=== PATIENT | male | born 1945 | race African-American/Black ===

== ENCOUNTER 2021-08-11 11:19 | Emergency (ER) | payer MEDICARE, OTHER ==
[~2021-08-11] VITALS: Ht 175.3 cm; Wt 90.9 kg
[~2021-08-11 11:19] MED LIST: CYCL5TAB PO
[2021-08-11 11:25] VITALS: BP 194/100
[2021-08-11] MEDS ORDERED: DIPH,PERTUSS(ACELL),TET VAC/PF 0.5 ML SYRINGE. VAX IM ONE (12:00)
[2021-08-11] MEDS ORDERED: BACITRACIN TOPICAL OINT PACKET. TP ONE (12:00)
[2021-08-11] MEDS ORDERED: HYDROcodone/APAP 5/325MG 1 TAB TABLET PO ONE (12:00)
[2021-08-11] MEDS ORDERED: ONDANSETRON ODT 4 MG TAB.RAPDIS. PO ONE (12:00)
[2021-08-11] MEDS ORDERED: IBUPROFEN 200 MG TABLET. PO ONE (12:00)
[2021-08-11] MEDS ORDERED: LIDOCAINE 2% Multi-Dose 20 ML VIAL. IJ ONE (12:00)
--- NOTE | 2021-08-11 12:23 | RAD ---
Study: XR HAND_RIGHT 3 VIEWS Indication: Laceration. Comparison: None. Findings: No acute fracture. Alignment is within normal limits. No advanced arthrosis. No retained radiopaque f oreign body. Impression: No retained radiopaque foreign body, as queried. No acute fracture. Electronically signed by: NATHAN GOMEZ MD (08/11/2021 12:21 PM) [id number]
[2021-08-11] MEDS ORDERED: BACI28.34 TP (13:19)
[2021-08-11] MEDS ORDERED: CEPH500T PO (13:19)
--- NOTE | 2021-08-11 13:20 | PHYS DOC ---
Past Medical History Past Medical History: Diabetes-Type II, Kidney Stone Past Surgical History: Other Additional Past Surgical Histo: LITHOTRIPSY Smoking Status: Never Smoker Alcohol Use: None Drug Use: None General Adult EDM: Chief Complaint: LACERATION/AVULSION HPI: HPI: Patient is a 76-year-old female presents to the emergency department complaining of laceration to the palm of right hand after his chain saw kicked back on him while cutting wood just prior to arrival. Patient reports his last tetanus immunization was greater than 5 years ago, denies loss of sensation or loss of movement to his hand wrist or fingers, reports a 5 out of 10 pain, patient states he put direct pressure on it and came straight to the emergency department, patient denies other physical complaints or physical concerns. Review of Systems: Review of Systems: 14 body systems of review of systems have been reviewed. See HPI for pertinent positives and negative responses, otherwise all other systems are negative, nonpertinent or noncontributory. Constitutional: Negative except as outlined in HPI above. Skin: Negative except as outlined in HPI above. Eyes: Negative except as outlined in HPI above. HENT: Negative except as outlined in HPI above. Respiratory: Negative except as outlined in HPI above. Cardiovascular: Negative except as outlined in HPI above. GI: Negative except as outlined in HPI above. : Negative except as outlined in HPI above. Musculoskeletal: Negative except as outlined in HPI above. Integument: Negative except as outlined in HPI above. Neurologic: Negative except as outlined in HPI above. Endocrine: Negative except as outlined in HPI above. Lymphatic: Negative except as outlined in HPI above. Psychiatric: Negative except as outlined in HPI above. Heart Score: C/O Chest Pain: No Risk Factors: Risk Factors: DM, Current or recent (<one month) smoker, HTN, HLP, family history of CAD, obesity. Risk Scores: Score 0 - 3: 2.5% MACE over next 6 weeks - Discharge Home Score 4 - 6: 20.3% MACE over next 6 weeks - Admit for Clinical Observation Score 7 - 10: 72.7% MACE over next 6 weeks - Early Invasive Strategies Current Medications: Current Medications Medications (Trade) Dose Ordered Sig/Urszula Start Time Stop Time Status Last Admin Dose Admin Acetaminophen/ Hydrocodone Bitart (Lortab 5/325) 1 tab 1X ONCE 08/11/21 12:00 08/11/21 12:01 DC 08/11/21 12:11 1 TAB Bacitracin (Bacitracin Zinc Oint Pkt) 1 pkt 1X ONCE 08/11/21 12:00 08/11/21 12:02 DC 08/11/21 12:11 1 PKT Diphtheria/ Tetanus/Acell Pertussis (ADACEL TDap SYRINGE) 0.5 ml ONCE ONCE 08/11/21 12:00 08/11/21 12:01 DC 08/11/21 12:13 0.5 ML Ibuprofen (Motrin) 600 mg 1X ONCE 08/11/21 12:00 08/11/21 12:01 DC 08/11/21 12:11 600 MG Lidocaine HCl (Lidocaine 2% 20ml Vial) 20 ml 1X ONCE 08/11/21 12:00 08/11/21 12:02 DC 08/11/21 12:11 20 ML Ondansetron HCl (Zofran Odt) 4 mg 1X ONCE 08/11/21 12:00 08/11/21 12:01 DC 08/11/21 12:11 4 MG Allergies: Allergies: Allergies Coded Allergies Type Severity Reaction Last Updated Verified codeine Allergy Intermediate 05/25/16 Yes Physical Exam: PE: Constitutional: Well developed, well nourished, no acute distress, non-toxic appearance. 76-year-old male in no apparent distress. HENT: Normocephalic, atraumatic. Eyes: Conjunctiva normal, no discharge. Neck: Normal range of motion, no stridor. Cardiovascular: No cyanosis appreciated, distal cap refill less than 2 seconds. Lungs & Thorax: Patient is in no respiratory distress, no audible adventitious lung sounds appreciated. Abdomen: Nontender, no abnormalities noted. Skin: Warm, dry, no erythema, no rash. See extremity assessment for focus skin examination Back: No tenderness, no deformities. Extremities: No tenderness, no cyanosis, no clubbing, ROM intact, no edema. Except for right hand, W shaped laceration from chainsaw partial skin thickness into adipose tissue, bleeding controlled with pressure bandage, full AROM/PROM of wrist and finger joints of the hand. No tendon involvement appreciated. Distal cap refill less than 2 seconds. Total length of laceration 8 cm Neurologic: Alert and oriented X 3, normal motor function, normal sensory function, no focal deficits noted. Psychologic: Affect normal, judgement normal, mood normal. Current Patient Data: Vital Signs: Vital Signs Date Time Temp Pulse Resp B/P (MAP) Pulse Ox O2 Delivery O2 Flow Rate FiO2 08/11/21 11:25 98.3 70 18 194/100 (131) 100 Room Air 98.3 EKG: EKG: [] Radiology/Procedures: Radiology/Procedures: PATIENT: SARIKA GIPSON ACCOUNT: [id number] : 1945 LOCATION: ER AGE: 76 SEX: M EXAM STATUS: REG ER ORD. PHYSICIAN: LELE RECIO APRN REASON: Chainsaw laceration palmar aspect rule out foreign body PROCEDURE: HAND RIGHT 3V Study: XR HAND_RIGHT 3 VIEWS Indication: Laceration. Comparison: None. Findings: No acute fracture. Alignment is within normal limits. No advanced arthrosis. No retained radiopaque foreign body. Impression: No retained radiopaque foreign body, as queried. No acute fracture. Electronically signed by: NATHAN GOMEZ MD (08/11/2021 12:21 PM) [id number] Course & Med Decision Making: Course & Med Decision Making Pertinent Labs and Imaging studies reviewed. (See chart for details) 76-year-old male, vital signs reviewed, presents emergency department concerning laceration from chainsaw to right hand. Physical examination consistent with patient's explanation of events, will order x-ray to rule out foreign body, will bring tetanus immunization up-to-date, will give pain medications. See laceration repair note. Discussed with the patient all findings and diagnostic testing as well as the need to follow-up with their primary care provider for further evaluation and treatment or return to the ED if any new or worsening symptoms. Strict return precautions were also discussed at length, the patient voiced understanding and agreement with the discharge planning. The patient was nontoxic in appearance, in no apparent distress, and hemodynamically stable at the time of disposition. Dragon Disclaimer: Dragon Disclaimer: This electronic medical record was generated, in whole or in part, using a voice recognition dictation system. Laceration Repair Lac Repair Indication: Laceration right palm Time: 1230 Confirmed: Patient, procedure, side, and site correct. Consent: Patient, has given verbal consent. Description/repair Procedure: The patient was placed in the appropriate position and anesthesia around the laceration was achieved with 8 cc 2% lidocaine without epinephrine . The area was then cleansed with Betadine scrub brush, rinsed with 500 cc pressurized normal saline, the wound was explored for foreign bodies, there are no foreign bodies.. The laceration was closed with 12 each interrupted sutures using 4-0 nylon. The wound area was then dressed with . Complexity: Single layer. Post procedure exam: Circulation, motor, sensory examination intact, bleeding controlled. Total repaired wound length: 8 cm. Other Items: Laceration is W-shaped The patient tolerated the procedure well. Complications: No complications. Performed by: Mariano, Lele Recio, HOME OFFICE CLAIMS EXAMINER-C Supervision: Dr. Galvan was available for consult for the critical aspects of the procedure including closure and post procedure exam. Total time: 35 minutes. Departure Departure Impression: Primary Impression: Laceration of right hand Qualified Codes: S61.411A - Laceration without foreign body of right hand, initial encounter Additional Impression: Need for DTaP vaccine Disposition: HOME / SELF CARE / HOMELESS Condition: GOOD Referrals: IFEOMA RODRIGUEZ MD (PCP) Patient Instructions: Laceration Care, Adult Additional Instructions: You were seen today in the emergency department for repair of your right hand laceration from a chainsaw injury. Your tetanus status was brought up-to-date today in the emergency department with a medication called Adacel/Tdap, please update your immunization records accordingly. An x-ray was performed today to rule out any foreign bodies or debris, there were none seen on your x-ray. Your injury required 12 sutures that will need to be removed in 7 to 10 days, please follow-up with your primary care or return for suture removal in 7 to 10 days. As we discussed, please keep clean and dry, wash with soap and water 2-3 times a day and apply antibiotic ointment. Cover with bandage to assist with healing of the abrasion injuries, minor nonsutured lacerations, and to prevent anything from hooking against the laceration and pulling them out prematurely. As we discussed, do not soak your hands in water, do not swim, do not soak in hot tubs, you may get it wet during daily cleansing. As we discussed, I have started you on an antibiotic that you will take to prevent any infectious process. Please take as directed. Please return to the emergency department for worsening symptoms or other concerns peer thank you for visiting our Emergency Department. It was a pleasure taking care of you today in the emergency department and we appreciate you trusting us with your care. If any additional problems come up don't hesitate to return to visit us. Please follow up with your primary care provider so they can plan additional care if needed and know about the problem that you had. If symptoms worsen come back to the Emergency Department. Any concerning symptoms that start such as chest pain, shortness of air, weakness or numbness on one side of the body, running high fevers or any other concerning symptoms return to the ER. EMERGENCY DEPARTMENT GENERAL DISCHARGE INSTRUCTIONS Thank you for coming to [facility] Emergency Department (ED) today and trusting us with you care. We trust that you had a positive experience in our Emergency Department. If you wish to speak to the department management, you may call the Director at [phone]. YOUR FOLLOW UP INSTRUCTIONS ARE FOLLOWS: 1. Do you have a private Doctor? If you do not have a private doctor, please ask for a resource list of physicians or clinics that may be able to assist you with follow up care. 2. The Emergency Physicain has interpreted your x-rays. The X-Ray specialist will also review them. If there is a change in the findings, you will be notified in 48 hours when at all possible. 3. A lab test or culture has been done, your results will be reviewed and you will be notified if you need a change in treatment. ADDITIONAL INSTRUCTIONS AND INFORMATION: 1. Your care today has been supervised by a physician who is specially trained in emergency care. Many problems require more than one evaluation for a complete diagnosis and treatment. We recommend that you schedule your follow up appointment as recommended to ensure complete treatment of you illness or injury. If you are unable to obtain follow up care and continue to have a problem, or if your condition worsens, we recommend that you return to the ED. 2. We are not able to safely determine your condition over the phone nor are we able to give sound medical advice over the phone. For these safety reasons, if you call for medical advice we will ask you to come to the ED for further evaluation. 3. If you have any questions regarding these discharge instructions please call the ED at [phone]. SAFETY INFORMATION: In the interest of safety, wellness, and injury prevention; we encourage you to wear your sealbelt, if you smoke; quite smoking, and we encourage family to use a protective helmet for bicycling and other sporting events that present an increased risk for head injury. IF YOUR SYMPTOMS WORSEN OR NEW SYMPTOMS DEVELOP, OR YOU HAVE CONCERNS ABOUT YOUR CONDITION; OR IF YOUR CONDITION WORSENS WHILE YOU ARE WAITING FOR YOUR FOLLOW UP APPOINTMENT; EITHER CONTACT YOUR PRIMARY CARE DOCTOR, THE PHYSICIAN WHOSE NAME AND NUMBER YOU WERE GIVEN, OR RETURN TO THE ED IMMEDIATELY. Scripts Cephalexin (CEPHALEXIN) 500 Mg Tablet 1 TAB PO QID for hand laceration for 7 Days, #28 TAB 0 Refills Prov: LELE RECIO APRN 08/11/21 Bacitracin/Polymyxin B Sulfate (POLYSPORIN TOPICAL OINT) 28.3 Gm Oint...g. 1 LISANDRO TP TID for WOUND CARE, #1 EACH 0 Refills DIRECTED BY PHYSICIAN Prov: LELE RECIO APRN 08/11/21 LELE RECIO APRN Aug 11, 2021 13:19
== END 2021-08-11 13:25 | disposition home or self-care (01) ==
LOC: ER 11:19
DX: S61.411A Laceration without foreign body of right hand, initial encounter (principal); E11.9 Type 2 diabetes mellitus without complications; Y28.8XXA Contact with other sharp object, undetermined intent, initial encounter; Y93.89 Activity, other specified; Y92.89 Other specified places as the place of occurrence of the external cause; Y99.8 Other external cause status
CPT/HCPCS: 12004; 73130; 90471; 90715; 99284-25